=== PATIENT | male | born 1950 | race Caucasian/White ===

== ENCOUNTER 2019-01-10 02:55 | Emergency (ER) | payer BC, MEDICARE ==
--- NOTE | 2019-01-10 03:11 | ERPHSYRPT ---
- History of Present Illness Time Seen by Provider: 01/10/19 03:10 Source: patient, EMS, other ([facility]) Exam Limitations: no limitations Physician History: patient is at her snf for rehabilitation after a possible therefore his face status post "spinal stroke.". patient has a history of multiple falls in the past. Has date injury. He was wearing c-collar until a few days ago. Tonight the patient fell getting out of the bed at the snf. He complains of lower back pain. He says it is same back pain as before, nothing new. Patient does not remember falling. No headache. Patient also has a foul smelling urine. As per the snf patient was confused but that to me patient sounds alert and oriented x3. Occurred: just prior to arrival Reason for Fall: unknown Injuries/Pain Location: back Loss of Consciousness: other (no loss of consciousness per snf but patient does not remember falling. Patient is little bit sleepy.) Quality: aching Severity of Pain-Max: mild Severity of Pain-Current: mild Modifying Factors: Improves With: movement Associated Symptoms (Fall): back pain, confusion, extremity injury, muscle spasms, No chest pain, No dizziness, No headache, No lightheadedness, No nausea , No neck pain, No ringing in ears, No seizures, No shortness of breath Allergies/Adverse Reactions: milk Allergy (Verified 01/10/19 03:15) ragweed pollen Allergy (Verified 01/10/19 03:15) Home Medications: Albuterol 17 gm IN Q6H PRN 01/10/19 [History] Apixaban [Eliquis] 5 mg PO BID 01/10/19 [History] Atorvastatin Calcium 20 mg PO BID 01/10/19 [History] Docusate Sodium [Colace] 100 mg PO BID 01/10/19 [History] Folic Acid 1 mg PO DAILY 01/10/19 [History] Furosemide 20 mg [Lasix 20 mg] 20 mg PO 01/10/19 [History] Gabapentin 300 mg PO TID 01/10/19 [History] Insulin Lispro [Humalog Kwikpen U-100] See Protocol SQ ACHS 01/10/19 [History] Lisinopril 20 mg [Zestril 20 MG] 20 mg PO 01/10/19 [History] Melatonin/Pyridoxine HCl (B6) [Melatonin 3 mg Tablet] 1 tab PO HS 01/10/19 [ History] Metformin HCl 500 mg PO BID 01/10/19 [History] Pantoprazole 20 mg [Protonix 20MG Tablet] 20 mg PO DAILY 01/10/19 [History ] - Review of Systems Constitutional: No Fever, No Chills Eyes: No Symptoms Ears, Nose, & Throat: No Symptoms Respiratory: No Cough, No Dyspnea Cardiac: No Chest Pain, No Edema, No Syncope Abdominal/Gastrointestinal: No Abdominal Pain, No Nausea, No Vomiting, No Diarrhea Genitourinary Symptoms: No Dysuria Musculoskeletal: Other (llow back pain, right hip pain.), No Back Pain, No Neck Pain Skin: No Rash Neurological: Other (possible LOC, possible head injury because patient was found flat on his face.), No Dizziness, No Focal Weakness, No Sensory Changes Psychological: No Symptoms Endocrine: No Symptoms All Other Systems: Reviewed and Negative - Past Medical History Endocrine Medical History: Diabetes Type II - Social History Alcohol Use: None Drug Use: none Significant Family History: no pertinent family hx - Female History Hx Now: No - Nursing Vital Signs Nursing Vital Signs: Initial Vital Signs Temperature 99.1 F 01/10/19 02:57 Pulse Rate 112 H 01/10/19 02:57 Respiratory Rate 16 01/10/19 02:57 Blood Pressure 160/87 01/10/19 02:57 O2 Sat by Pulse Oximetry 98 01/10/19 02:57 Pain Scale Pain Intensity 5 - Ruth Coma Score Best Eye Response (Ruth): (4) open spontaneously Best Verbal Response (Ruth): (5) oriented Best Motor Response (Ruth): (6) obeys commands Ruth Total: 15 - Physical Exam General Appearance: no apparent distress, alert Head Injury: no evidence of injury Eye Exam: PERRL/EOMI, eyes nml inspection ENT Exam: airway nml, No evidence of ENT injury Neck Exam: trachea midline, full range of motion, normal inspection, No tenderness Respiratory/Chest Exam: normal breath sounds, No chest tenderness, No respiratory distress, No crepitus, No decreased breath sounds Cardiovascular Exam: normal heart sounds, regular rate/rhythm Gastrointestinal Exam: soft, normal bowel sounds, No tenderness, No distention, No guarding, No ecchymosis Back Exam: normal inspection, other (lumbar area pain, spasm, painful range of motion. Vague tenderness.), No vertebral tenderness Extremity Exam: normal inspection, normal range of motion, pelvis stable, other (right hip: Mild pain, normal range of motion, no tenderness, normal distal neurovascular function.), No deformities Neurologic Exam: alert, oriented x 3, cooperative, sensation nml, other (old lower extremity weakness.) Skin Exam: normal color, warm, dry SpO2 Interpretation: normal O2 Delivery: Room Air - CT Exams Lumbar Spine CT Interpretation: Other (L1 Comp Fx, Psoas Infection bilat.) Head CT Interpretation: Other (Nothing acute) Ordered Tests: Active Orders 24 hr Category Date Time Status HEAD WITHOUT CONTRAST [CT] Stat Exams 01/10/19 03:35 Taken LUMBAR SPINE W/O [CT] Stat Exams 01/10/19 03:38 Taken PELVIS WITHOUT CONTRAST [CT] Stat Exams 01/10/19 03:52 Taken BLOOD CULTURE Stat Lab 01/10/19 Ordered CBC W DIFF Stat Lab 01/10/19 03:17 Completed CMP Stat Lab 01/10/19 03:17 Completed CULTURE,URINE Stat Lab 01/10/19 04:05 Received UA W/RFX UR CULTURE Stat Lab 01/10/19 04:05 Completed Medication Summary Generic Name Dose Route Start Last Admin Trade Name Freq PRN Reason Stop Dose Admin Piperacillin Sod/Tazobactam Sod 3.375 gm in 100 mls @ 200 mls/hr 01/10/19 05: 35 Zosyn 3.375gm/100 Ml D5w IV 01/10/19 06:04 STAT STA Sodium Chloride 1,000 mls @ 150 mls/hr 01/10/19 05:36 Sodium Chloride 0.9% 1000 Ml IV 01/10/19 12:15 .[id number] STA Lab/Rad Data: Laboratory Result Diagrams 01/10/19 03:17 01/10/19 03:17 Laboratory Results 01/10/19 01/10/19 01/10/19 Range/Units 04:05 03:17 03:17 WBC 9.4 (4.0-10.5) K/mm3 RBC 3.74 L (4.1-5.6) M/mm3 Hgb 10.4 L (12.5-18.0) gm/dl Hct 33.8 L (42-50) % MCV 90.4 (78-100) fl MCH 27.8 (26-32) pg MCHC 30.8 L (32-36) g/dl RDW 16.8 H (11.5-14.0) % Plt Count 338 (150-450) K/mm3 MPV 9.9 H (6-9.5) fl Gran % 75.4 H (36.0-66.0) % Eos # (Auto) 0.30 (0-0.5) Absolute Lymphs (auto) 1.23 (1.0-4.6) Absolute Monos (auto) 0.75 (0.0-1.3) Lymphocytes % 13.1 L (24.0-44.0) % Monocytes % 8.0 (0.0-12.0) % Eosinophils % 3.2 (0.00-5.0) % Basophils % 0.3 (0.0-0.4) % Absolute Granulocytes 7.05 H (1.4-6.9) Basophils # 0.03 (0-0.4) Sodium 137 (137-145) mmol/L Potassium 4.2 (3.5-5.1) mmol/L Chloride 103 (98-107) mmol/L Carbon Dioxide 26 (22-30) mmol/L Anion Gap 13.5 (5-15) MEQ/L BUN 23 H (9-20) mg/dL Creatinine 0.78 (0.66-1.25) mg/dL Estimated GFR > 60.0 ML/MIN Glucose 148 H (74-106) mg/dL Calcium 10.1 (8.4-10.2) mg/dL Total Bilirubin 0.10 L (0.2-1.3) mg/dL AST 28 (17-59) U/L ALT 27 (0-50) U/L Alkaline Phosphatase 81 (38-126) U/L Serum Total Protein 6.8 (6.3-8.2) g/dL Albumin 3.0 L (3.5-5.0) g/dL Urine Color YELLOW (YELLOW) Urine Appearance CLOUDY (CLEAR) Urine pH 5.0 (5-6) Ur Specific [place] 1.010 (1.005-1.025) Urine Protein NEGATIVE (Negative) Urine Ketones NEGATIVE (NEGATIVE) Urine Blood NEGATIVE (0-5) Keo/ul Urine Nitrite NEGATIVE (NEGATIVE) Urine Bilirubin NEGATIVE (NEGATIVE) Urine Urobilinogen NEGATIVE (0-1) mg/dL Ur Leukocyte Esterase LARGE (NEGATIVE) Urine WBC (Auto) >100 (0-5) /HPF Urine RBC (Auto) 3-5 (0-2) /HPF U Epithel Cells (Auto) NONE (FEW) /HPF Urine Bacteria (Auto) MANY (NEGATIVE) /HPF U Non-Squamous Epi Cells RARE (FEW) /HPF Unidentified Crystals 25-50 (NEGATIVE) /HPF Urine Mucus (Auto) SLIGHT (NEGATIVE) /HPF Urine Culture Reflexed YES (NO) Urine Glucose NEGATIVE (NEGATIVE) mg/dL - Progress Progress: unchanged Progress Note: 01/10/19 05:31 Dr. Javier had me to transfer patient back to [place]. I discussed this with patient and his . They do not want to go back to [place]. They want to go to [facility] 01/10/19 05:40 waiting for [facility] to call back 01/10/19 05:43 Dr. Hurtado at [facility] accepted the patient. Discussed with : Cherelle Will see patient in: other (He told me to transfer the pt to [facility]. ) - Departure Departure Disposition: Transfer Clinical Impression: Psoas abscess, Head contusion UTI (urinary tract infection) Qualifiers: Urinary tract infection type: site unspecified Hematuria presence: without hematuria Qualified Code(s): N39.0 - Urinary tract infection, site not specified Compression fracture of L1 lumbar vertebra Qualifiers: Encounter type: initial encounter Qualified Code(s): S32.010A - Wedge compression fracture of first lumbar vertebra, initial encounter for closed fracture Condition: Stable Critical Care Time: No Referrals: DARYN RUIZ [Primary Care Provider] -
[2019-01-10 03:22] LABS: Absolute Neutrophil Ct (ANC) 7.05 (1.4-6.9); BASOPHIL % 0.3 % (0.0-0.4); Basophil (Absolute #) 0.03 (0-0.4); Eosinophil % 3.2 % (0.00-5.0); Hematocrit 33.8 % (42-50); Hemoglobin 10.4 gm/dl (12.5-18.0); Lymphocyte (Absolute #) 1.23 (1.0-4.6); Lymphocytes % 13.1 % (24.0-44.0); Mean Cell Volume 90.4 fl (78-100); Mean Corpuscular Hemoglobin 27.8 pg (26-32); Mean Corpuscular Hgb Concent. 30.8 g/dl (32-36); Mean Platelet Volume 9.9 fl (6-9.5); Monocyte (Absolute #) 0.75 (0.0-1.3); Neutrophil % 75.4 % (36.0-66.0); Platelet Count 338 K/mm3 (150-450); Red Blood Count 3.74 M/mm3 (4.1-5.6); Red Cell Distribution Width 16.8 % (11.5-14.0); White Blood Count 9.4 K/mm3 (4.0-10.5)
[2019-01-10 03:25] LABS: ALKALINE PHOSPHATASE 81 U/L (38-126); ANION GAP 13.5 MEQ/L (5-15); BLOOD UREA NITROGEN 23 mg/dL (9-20); CHLORIDE 103 mmol/L (98-107); Calcium 10.1 mg/dL (8.4-10.2); Carbon Dioxide 26 mmol/L (22-30); Creatinine 1 0.78 mg/dL (0.66-1.25); Glucose 148 mg/dL (74-106); Potassium 4.2 mmol/L (3.5-5.1); SGOT/AST 28 U/L (17-59); SGPT/ALT 27 U/L (0-50); SODIUM 137 mmol/L (137-145); Total Protein 6.8 g/dL (6.3-8.2)
[2019-01-10 04:14] LABS: Appearance CLOUDY (CLEAR); Bacteria MANY /HPF (NEGATIVE); Bilirubin NEGATIVE (NEGATIVE); Blood NEGATIVE Ery/ul (0-5); Crystals Unidentified 25-50 /HPF (NEGATIVE); Glucose NEGATIVE (NEGATIVE); Ketones NEGATIVE (NEGATIVE); Leukocyte Esterase LARGE (NEGATIVE); Mucus SLIGHT /HPF (NEGATIVE); Nitrite NEGATIVE (NEGATIVE); Non-Squamous Epithelial Cells RARE /HPF (FEW); Protein,Urine Dip NEGATIVE (Negative); Urobilinogen NEGATIVE mg/dL (0-1); WBC >100 /HPF (0-5)
[2019-01-10 04:45] VITALS: O2SAT 96
[2019-01-10] MEDS ORDERED: Zosyn 3.375GM/100 Ml D5W 3.375 GM/100 ML IVPB IV STA (05:35)
[2019-01-10] MEDS ORDERED: Sodium Chloride 0.9% 1000 ML 1,000 ML IV STA (05:36)
[2019-01-10] MEDS ORDERED: MORPHINE SULFATE 2 MG INJ IV ONE (05:46)
[2019-01-10] MEDS ORDERED: Zofran 4 MG/2 ML VIAL IV ONE (05:46)
[2019-01-10] MEDS ORDERED: Sodium Chloride 0.9% 1000 ML 1,000 ML ONE (06:08)
[2019-01-10] MEDS ORDERED: Zosyn 3.375GM/100 Ml D5W 3.375 GM/100 ML IVPB IV ONE (06:08)
[2019-01-10] MEDS ORDERED: Zofran 4 MG/2 ML VIAL ONE (06:08)
[2019-01-10] MEDS ORDERED: MORPHINE SULFATE 2 MG INJ ONE (06:08)
[2019-01-10 07:02] VITALS: BP 139/83; PULSE 104
--- NOTE | 2019-01-10 09:08 | XRAY ---
Indication: Headache following fall. Current blood thinner therapy. Multiple contiguous axial images obtained through the head without contrast. Comparison: None Age-appropriate global atrophy, minimal periventricular degenerative micro-ischemia bilaterally, and remote bilateral insular lacunar infarcts. No acute intracranial hemorrhage, abnormal extra-axial fluid collection, or mass effect. Fourth ventricle is midline without hydrocephalus. Bony calvarium intact. Right frontal scalp near the vertex demonstrates a 3 cm soft tissue calcified mass. There is mild mucosal thickening of both ethmoid and both maxillary sinuses without fluid leveling. Partial opacification of the right mastoid air cells. Impression: 1. Nonacute senile brain with remote bilateral insular lacunar infarcts. 2. Incidental paranasal sinus disease. 3. Right scalp calcified soft tissue mass probably benign. Comment: Preliminary interpretation was made by [facility]. No discrepancy. CT DI 149.23
--- NOTE | 2019-01-10 09:14 | XRAY ---
Indication: Pain following fall. Current blood thinner therapy. Multiple contiguous axial images obtained through the pelvis with special attention to the osseous structures. Two-dimensional sagittal and coronal reformatted images obtained. Comparison: None There is mild osteopenia. No acute fracture, dislocation, or suspicious bony lesions. Moderate degenerative changes of the visualized lower lumbar spine reported separately. SI joints are bilaterally symmetric. Visualized noncontrasted soft tissues demonstrates extensive scattered vascular calcifications bilaterally. Right iliopsoas muscle demonstrates a 4.3 x 3.9 cm and the left muscle demonstrates 3.5 x 3.0 cm noncalcified hypodense masses versus fluid collections. Lack of IV contrast precludes further characterization. Given patient's current blood thinner therapy, intramuscular hematomas offered for clinical consideration. Impression: 1. Osteopenia. Negative acute fracture/dislocation. 2. Bilateral iliopsoas intramuscular hypodense masses versus fluid collections, possible intramuscular hematomas. Infectious process not completely excluded on this noncontrast exam. 3. Extensive scattered vascular calcifications. Comment: Preliminary interpretation was made by [facility]. No discrepancy. CT DI 33.12
--- NOTE | 2019-01-10 09:20 | XRAY ---
Indication: Low back pain following fall. Multiple contiguous axial images obtained through the lumbar spine. Two-dimensional sagittal and coronal reformatted images obtained. Comparison: None Osseous structures demineralized consistent with patient's age. L1 segment demonstrates compression fracture with approximately 50% height loss and appear slightly sclerotic suggesting acute to subacute fracture. No spinal canal or foraminal encroachment. Elsewhere healing right 11/12 healing rib fractures. There are mild/moderate multilevel thoracolumbar broad-based disc bulges with endplate spurring and degenerative vacuum disc phenomena. Subsequent L2-L4 levels demonstrate spinal canal stenosis and L4-S1 levels demonstrates bilateral foraminal stenosis. Sagittal and coronal reformatted images demonstrates normal lumbar lordosis with multilevel disc space loss. No subluxation. Visualized noncontrasted soft tissues demonstrates moderate scattered vascular calcifications and IVC filter in situ. Impression: 1. Acute to subacute appearing L1 compression fracture as detailed. Also healing right 11/12 rib fractures. 2. Osteopenia and multilevel degenerative disc disease. Comment: Preliminary interpretation was made by [facility]. No critical discrepancy. CT DI 149.23
== END 2019-01-10 06:55 | disposition short-term general hospital (02) ==
LOC: ED 02:55
DX: K68.12 Psoas muscle abscess (principal); S00.93XA Contusion of unspecified part of head, initial encounter; W06.XXXA Fall from bed, initial encounter; Y92.122 Bedroom in nursing home as the place of occurrence of the external cause; M54.9 Dorsalgia, unspecified; R41.0 Disorientation, unspecified; M54.5 Low back pain; Z79.899 Other long term (current) drug therapy; E11.9 Type 2 diabetes mellitus without complications
CPT/HCPCS: 36000; 36415; 70450; 72131; 72192; 80053; 81001; 85025; 87040; 87077; 87086; 87186; 96365; 96374; 96375; 99285; J2270; J2405; J2543